=== PATIENT | female | born 1995 | race Caucasian/White ===

== ENCOUNTER 2017-07-21 12:33 | Emergency (ER) | payer BC ==
[~2017-07-21] VITALS: Ht 162.6 cm; Wt 60.0 kg
[2017-07-21 12:35] VITALS: BP 131/85; PULSE 86; RESP 14; TEMP 98.4; O2SAT 98
[2017-07-21 13:14] LABS: AUTOMATED NEUTROPHIL # 11.2 TH/MM3 (1.8-7.7); BASOPHIL # 0.1 TH/MM3 (0-0.2); BASOPHIL % 0.5 % (0.0-2.0); EOSINOPHIL # 0.1 TH/MM3 (0-0.4); EOSINOPHIL % 0.4 % (0.0-4.0); HEMATOCRIT 42.7 % (35.0-46.0); HEMOGLOBIN 14.7 GM/DL (11.6-15.3); LYMPH % 14.7 % (9.0-44.0); LYMPHOCYTE # 2.1 TH/MM3 (1.0-4.8); MEAN CELL VOLUME 88.4 FL (80.0-100.0); MEAN CORPUSCULAR HEMOGLOBIN 30.5 PG (27.0-34.0); MEAN CORPUSCULAR HGB CONC 34.5 % (32.0-36.0); MEAN PLATELET VOLUME 8.8 FL (7.0-11.0); MONO % 5.6 % (0.0-8.0); MONOCYTE # 0.8 TH/MM3 (0-0.9); NEUT % 78.8 % (16.0-70.0); PLATELET COUNT 287 TH/MM3 (150-450); RED BLOOD COUNT 4.83 MIL/MM3 (4.00-5.30); RED CELL DISTRIBUTION WIDTH 12.6 % (11.6-17.2); WHITE BLOOD COUNT 14.2 TH/MM3 (4.0-11.0)
[2017-07-21 13:18] LABS: BACTERIA, URINE RARE /hpf; BILIRUBIN, URINE NEG (NEG); BLOOD, URINE MOD (NEG); GLUCOSE,URINE NEG (NEG); KETONE, URINE NEG (NEG); NITRITE,URINE NEG (NEG); PH, URINE 6.5 (5.0-8.5); SQUAMOUS EPITHELIAL CELL URINE <1 /hpf (0-5); URINE COLOR LIGHT-YELLOW (YELLW/STRAW); URINE LEUKOCYTE ESTERASE LARGE (NEG)
[2017-07-21 13:40] LABS: ALBUMIN 4.8 GM/DL (3.4-5.0); AST (GOT) 14 U/L (15-37); BICARBONATE 25.7 MEQ/L (21.0-32.0); BLOOD UREA NITROGEN 6 MG/DL (7-18); CALCIUM 9.3 MG/DL (8.5-10.1); CHLORIDE 104 MEQ/L (98-107); CREATININE 0.68 MG/DL (0.50-1.00); GLOMERULAR FILTRATION RATE 106 ML/MIN (>89); GLUCOSE,RANDOM 89 MG/DL (74-106); SODIUM (NA) 138 MEQ/L (136-145)
[2017-07-21 13:43] LABS: ALKALINE PHOSPHATASE 47 U/L (45-117); ALT (GPT) 16 U/L (10-53); TOTAL BILIRUBIN ADULT 0.6 MG/DL (0.2-1.0); TOTAL PROTEIN 8.2 GM/DL (6.4-8.2)
[2017-07-21] MEDS ORDERED: CIPR250T2 PO (14:37)
--- NOTE | 2017-07-21 14:56 | PD ---
HPI Chief Complaint: Flank/Kidney Pain Time Seen by Provider: 14:37 Travel History International Travel<30 days: No Contact w/Intl Traveler<30days: No Traveled to known affect area: No History of Present Illness HPI The patient is a 22-year-old female who presents to the emergency department for dysuria, frequency, urgency, and occasional hematuria. The patient's symptoms started while she was in [place] last week. The patient was seen and evaluated, placed on antibiotics twice a day for 3 days. However, she continues to have symptoms. She then filled and all Survey for UTI symptoms, talked with the physician over the computer who prescribed Cipro 500 mg twice a day for 5 days. The patient has taken 9 of the 10 pills but has worsening symptoms. The patient complains right lower quadrant abdominal pain that radiates to the right flank, dysuria, frequency, and urgency. She denies any abnormal vaginal discharge or bleeding. The patient has a Mirena IUD in place. She denies any history of nephrolithiasis, denies any significant vaginal discharge. The patient was seen at urgent care earlier today who obtained a culture and referred the patient to the emergency department. [facility] Past Medical History Medical History: Denies Significant Hx ?: Not LMP: has IUD Past Surgical History Narrative Surgical [place] tooth removal Surgical History: No Previous Surgery Social History Alcohol Use: Yes Tobacco Use: No Substance Use: No Allergies-Medications (Allergen,Severity, Reaction): Coded Allergies: No Known Allergies (Unverified , 07/21/17) Reported Meds & Prescriptions Reported Meds & Active Scripts Active Reported Ciprofloxacin (Ciprofloxacin HCl) 250 Mg Tab 250 Mg PO BID Review of Systems Except as stated in HPI: all other systems reviewed are Neg General / Constitutional: No: Fever Cardiovascular: No: Chest Pain or Discomfort Respiratory: No: Shortness of Breath Gastrointestinal: No: Nausea, Vomiting, Diarrhea, Abdominal Pain Genitourinary: Positive: Urgency, Frequency, Dysuria, Hematuria, Pelvic Pain, Flank Pain, No: Discharge, Vaginal Bleeding Skin: No Rash Physical Exam Narrative GENERAL: Awake, alert, pleasant 22-year-old female who appears her stated age and is in no acute respiratory distress. SKIN: Focused skin assessment warm/dry. HEAD: Atraumatic. Normocephalic. EYES: No injection or drainage. ENT: No nasal bleeding or discharge. Mucous membranes pink and moist. NECK: Trachea midline. No JVD. GASTROINTESTINAL: Abdomen soft, mild suprapubic tenderness and right lower quadrant tenderness but no guarding or rigidity. Back: Mild right CVA tenderness. Pelvic: External examination reveals no rashes or lesions. Speculum examination reveals scant white discharge in the vaginal vault. Cervix is closed. No cervical motion tenderness. No adnexal tenderness. MUSCULOSKELETAL: No obvious deformities. No clubbing. No cyanosis. No edema. NEUROLOGICAL: Awake and alert. No obvious cranial nerve deficits. Motor grossly within normal limits. Normal speech. PSYCHIATRIC: Appropriate mood and affect; insight and judgment normal. Data Data Last Documented VS Vital Signs Date Time Temp Pulse Resp B/P (MAP) Pulse Ox O2 Delivery O2 Flow Rate FiO2 07/21/17 12:35 98.4 86 14 131/85 (100) 98 Orders Orders Complete Blood Count With Diff (07/21/17 12:40) Comprehensive Metabolic Panel (07/21/17 12:40) Urinalysis - C+S If Indicated (07/21/17 12:40) Ed Urine Pregnancytest Poc (07/21/17 12:40) Urine Culture (07/21/17 12:52) Gc And Chlamydia Pcr (07/21/17 14:47) Wet Prep Profile (07/21/17 14:47) Ct Abd/Pel W/O Iv Contrast (07/21/17 ) Ceftriaxone Inj (Rocephin Inj) (07/21/17 16:30) Ed Discharge Order (07/21/17 16:25) Labs Laboratory Tests Test 07/21/17 12:50 07/21/17 12:52 07/21/17 15:00 White Blood Count 14.2 TH/MM3 Red Blood Count 4.83 MIL/MM3 Hemoglobin 14.7 GM/DL Hematocrit 42.7 % Mean Corpuscular Volume 88.4 FL Mean Corpuscular Hemoglobin 30.5 PG Mean Corpuscular Hemoglobin Concent 34.5 % Red Cell Distribution Width 12.6 % Platelet Count 287 TH/MM3 Mean Platelet Volume 8.8 FL Neutrophils (%) (Auto) 78.8 % Lymphocytes (%) (Auto) 14.7 % Monocytes (%) (Auto) 5.6 % Eosinophils (%) (Auto) 0.4 % Basophils (%) (Auto) 0.5 % Neutrophils # (Auto) 11.2 TH/MM3 Lymphocytes # (Auto) 2.1 TH/MM3 Monocytes # (Auto) 0.8 TH/MM3 Eosinophils # (Auto) 0.1 TH/MM3 Basophils # (Auto) 0.1 TH/MM3 CBC Comment DIFF FINAL Differential Comment Blood Urea Nitrogen 6 MG/DL Creatinine 0.68 MG/DL Random Glucose 89 MG/DL Total Protein 8.2 GM/DL Albumin 4.8 GM/DL Calcium Level 9.3 MG/DL Alkaline Phosphatase 47 U/L Aspartate Amino Transf (AST/SGOT) 14 U/L Alanine Aminotransferase (ALT/SGPT) 16 U/L Total Bilirubin 0.6 MG/DL Sodium Level 138 MEQ/L Potassium Level 3.7 MEQ/L Chloride Level 104 MEQ/L Carbon Dioxide Level 25.7 MEQ/L Anion Gap 8 MEQ/L Estimat Glomerular Filtration Rate 106 ML/MIN Urine Color LIGHT-YELLOW Urine Turbidity CLEAR Urine pH 6.5 Urine Specific Burton 1.001 Urine Protein TRACE mg/dL Urine Glucose (UA) NEG mg/dL Urine Ketones NEG mg/dL Urine Occult Blood MOD Urine Nitrite NEG Urine Bilirubin NEG Urine Urobilinogen LESS THAN 2.0 MG/DL Urine Leukocyte Esterase LARGE Urine RBC 1 /hpf Urine WBC 15 /hpf Urine Squamous Epithelial Cells <1 /hpf Urine Bacteria RARE /hpf Microscopic Urinalysis Comment CULTURE INDICATED Clue Cells (Wet Prep) NONE SEEN Vaginal Trichomonas (Wet Prep) NONE SEEN Vaginal Yeast (Wet Prep) NONE SEEN MDM Medical Decision Making Medical Screen Exam Complete: Yes Emergency Medical Condition: Yes Medical Record Reviewed: Yes Interpretation(s) Laboratory Tests Test 07/21/17 12:50 07/21/17 12:52 07/21/17 15:00 White Blood Count 14.2 TH/MM3 Red Blood Count 4.83 MIL/MM3 Hemoglobin 14.7 GM/DL Hematocrit 42.7 % Mean Corpuscular Volume 88.4 FL Mean Corpuscular Hemoglobin 30.5 PG Mean Corpuscular Hemoglobin Concent 34.5 % Red Cell Distribution Width 12.6 % Platelet Count 287 TH/MM3 Mean Platelet Volume 8.8 FL Neutrophils (%) (Auto) 78.8 % Lymphocytes (%) (Auto) 14.7 % Monocytes (%) (Auto) 5.6 % Eosinophils (%) (Auto) 0.4 % Basophils (%) (Auto) 0.5 % Neutrophils # (Auto) 11.2 TH/MM3 Lymphocytes # (Auto) 2.1 TH/MM3 Monocytes # (Auto) 0.8 TH/MM3 Eosinophils # (Auto) 0.1 TH/MM3 Basophils # (Auto) 0.1 TH/MM3 CBC Comment DIFF FINAL Differential Comment Blood Urea Nitrogen 6 MG/DL Creatinine 0.68 MG/DL Random Glucose 89 MG/DL Total Protein 8.2 GM/DL Albumin 4.8 GM/DL Calcium Level 9.3 MG/DL Alkaline Phosphatase 47 U/L Aspartate Amino Transf (AST/SGOT) 14 U/L Alanine Aminotransferase (ALT/SGPT) 16 U/L Total Bilirubin 0.6 MG/DL Sodium Level 138 MEQ/L Potassium Level 3.7 MEQ/L Chloride Level 104 MEQ/L Carbon Dioxide Level 25.7 MEQ/L Anion Gap 8 MEQ/L Estimat Glomerular Filtration Rate 106 ML/MIN Urine Color LIGHT-YELLOW Urine Turbidity CLEAR Urine pH 6.5 Urine Specific [place] 1.001 Urine Protein TRACE mg/dL Urine Glucose (UA) NEG mg/dL Urine Ketones NEG mg/dL Urine Occult Blood MOD Urine Nitrite NEG Urine Bilirubin NEG Urine Urobilinogen LESS THAN 2.0 MG/DL Urine Leukocyte Esterase LARGE Urine RBC 1 /hpf Urine WBC 15 /hpf Urine Squamous Epithelial Cells <1 /hpf Urine Bacteria RARE /hpf Microscopic Urinalysis Comment CULTURE INDICATED Clue Cells (Wet Prep) NONE SEEN Vaginal Trichomonas (Wet Prep) NONE SEEN Vaginal Yeast (Wet Prep) NONE SEEN Last Impressions Abdomen/Pelvis CT 07/21/17 0000 Signed Impressions: Service Date/Time: Friday, July 21, 2017 15:33 - CONCLUSION: Negative , lack of intravenous contrast make it difficult to exclude subtle pyelonephritis. There is no stone or obstruction. Correlation suggested. Colt Sutton MD FACR Differential Diagnosis Differential diagnosis includes pyelonephritis, UTI, cervicitis, PID, appendicitis, Crohn's disease, ectopic . Narrative Course UA was sent to lab and bedside UA test was obtained. Pelvic examination was performed and gonorrhea/Coumadin PCR and wet prep are sent to lab. Labs were sent, white count was elevated at 14.2, bedside urine test is negative. UA does reveal WBCs and bacteria. Pelvic examination was performed, and the presence of a female nurse, essentially unremarkable except for scant thin white physiologic discharge. Wet prep and GC were sent to lab. Therefore, CT of the abdomen and pelvis was performed. Wet prep was negative. CT reveals no acute findings. The patient will be changed from Cipro to Bactrim twice a day for 7 days, was administered 1 g of Rocephin. UA culture has been sent to lab. Diagnosis Primary Impression: Pyelonephritis Patient Instructions: General Instructions Additional Instructions: Medications as directed. Follow-up with her primary physician. Return if symptoms worsen or progress. Med/Other Pt SpecificInfo: Prescription(s) given Scripts Phenazopyridine (Pyridium) 100 Mg Tab 100 MG PO Q8H Y for DYSURIA for 2 Days, #6 TAB 0 Refills Prov: Sohail Fong MD 07/21/17 Sulfamethoxazole-Trimethoprim (Bactrim DS) 800-160 Mg Tab 1 TAB PO BID for Infection, #14 TAB 0 Refills Prov: Sohail Fong MD 07/21/17 Disposition: 01 DISCHARGE HOME Condition: Stable Sohail Fong MD Jul 21, 2017 14:56
--- NOTE | 2017-07-21 15:55 | RADRPT ---
EXAM DATE/TIME: 07/21/2017 15:33 [facility] COMPARISON: No previous studies available for comparison. INDICATIONS : Urinating problems,evaluate for pyelonephritis,right flank pain ORAL CONTRAST: No oral contrast ingested. RADIATION DOSE: 6.64 CTDIvol (mGy) MEDICAL HISTORY : None SURGICAL HISTORY : None. ENCOUNTER: Initial ACUITY: 1 month PAIN SCALE: 6/10 LOCATION: Right Abdomen TECHNIQUE: Volumetric scanning of the abdomen and pelvis was performed. Using automated exposure control and ad justment of the mA and/or kV according to patient size, radiation dose was kept as low as reasonably achievable to obtain optimal diagnostic quality images. DICOM format image data is available electro nically for review and comparison. FINDINGS: LOWER LUNGS: The visualized lower lungs are clear. LIVER: Homogeneous density without lesion. There is no dilation of the biliary tree. No calcified gallston es. SPLEEN: Normal size without lesion. PANCREAS: Within normal limits. KIDNEYS: Normal in size and shape. There is no mass, stone, or hydronephrosis. There is no perinephric stran ding. ADRENAL GLANDS: Within normal limits. VASCULAR: There is no aortic aneurysm. BOWEL/MESENTERY: The stomach, small bowel, and colon demonstrate no acute abnormality. There is no free intraperitone al air or fluid. ABDOMINAL WALL: Within normal limits. RETROPERITONEUM: There is no lymphadenopathy. BLADDER: No wall thickening or mass. REPRODUCTIVE: IUD in place. INGUINAL: There is no lymphadenopathy or hernia. MUSCULOSKELETAL: Within normal limits for patient age. CONCLUSION: Negative, lack of intravenous contrast make it difficult to exclude subtle pyelonephritis. There is no stone or obstruction. Correlation suggested. Colt Sutton MD FACR on July 21, 2017 at 15:51 Board Certified Radiologist. This report was verified electronically.
[2017-07-21] MEDS ORDERED: cefTRIAXone INJ 1,000 MG in SODIUM CHLORIDE 0.9% INJ 100 ML IV ONE (16:30)
[2017-07-21] MEDS ORDERED: PHEN0.4T PO (16:36)
[2017-07-21] MEDS ORDERED: BACT800T5 PO (16:36)
== END 2017-07-21 17:27 | disposition home or self-care (01) ==
LOC: NEPD 12:33
DX: N12 Tubulo-interstitial nephritis, not specified as acute or chronic (principal)
CPT/HCPCS: 74176; 80053; 81001; 84703; 85025; 87086; 87210; 87491; 87591; 96365; 99284; J0696